=== PATIENT | female | born 1985 | race Caucasian/White ===

== ENCOUNTER 2018-07-23 17:54 | Emergency (ER) | payer MEDICAID, OTHER ==
[~2018-07-23] VITALS: Ht 180.3 cm; Wt 131.0 kg
[~2018-07-23 17:54] MED LIST: PREN1TAB49 PO
[2018-07-23 18:15] VITALS: Ht 180.3 cm; Wt 131.0 kg
[2018-07-23] MEDS ORDERED: ACETAMINOPHEN 500 MG TAB PO STA (20:21)
[2018-07-23] MEDS ORDERED: HYDROmorphONE 0.5 MG/0.5 ML SYG IM STA (20:21)
[2018-07-23] MEDS ORDERED: ONDANSETRON (ODT) 4 MG TAB ODT STA (20:21)
[2018-07-23] MEDS ORDERED: CYCL10TA7 PO (21:59)
[2018-07-23] MEDS ORDERED: HYDR-4011 PO (21:59)
--- NOTE | 2018-07-23 22:02 | ERD ---
ER Documentation Chief Complaint Chief Complaint Lower back pain after "bending over" X 1 day, no trauma HPI 32-year-old female presents with low back pain for last day. Started after bend ing over. Pain is described as 10 out of 10, sharp, without radiation. Pain is worse with movement and decreased with rest. ROS All systems reviewed and are negative except as per history of present illness. Medications Home Meds Active Scripts Cyclobenzaprine Hcl* (Cyclobenzaprine Hcl*) 10 Mg Tablet, 10 MG PO TID, #20 TAB Prov:JUVENTINO BRYANT MD 07/23/18 Hydrocodone/Acetaminophen ([place] 5-325 Tablet) 1 Each Tablet, 1 TAB PO Q6H PRN for PAIN, #14 TAB Prov:JUVENTINO BRYANT MD 07/23/18 Reported Medications Vits W-Ca,Fe,Fa(<1MG) () 1 Tab Tablet, 1 TAB PO DAILY 03/20/12 Allergies Allergies: Coded Allergies: aspirin (Verified Allergy, Unknown, 07/23/18) ibuprofen (Verified Allergy, Unknown, 07/23/18) PMhx/Soc Medical and Surgical Hx: pt denies Medical Hx, pt denies Surgical Hx Hx Neurological Disorder: Yes (sciatica) Hx Respiratory Disorders: Yes (asthma) Hx Alcohol Use: Yes (socially) Hx Tobacco Use: No Smoking Status: Never smoker FmHx Family History: No diabetes, No coronary disease, No other Physical Exam Vitals Vital Signs Date Temp Pulse Resp B/P (MAP) Pulse Ox O2 O2 Flow FiO2 Time Delivery Rate 07/23/18 99.3 80 18 139/83 99 18:15 (101) Physical Exam Const: No acute distress Head: Atraumatic Eyes: Normal Conjunctiva ENT: Normal External Ears, Nose and Mouth. Neck: Full range of motion. No meningismus. Resp: Clear to auscultation bilaterally Cardio: Regular rate and rhythm, no murmurs Abd: Soft, non tender, non distended. Normal bowel sounds Skin: No petechiae or rashes Back: No midline or flank tenderness or tenderness diffusely L4-5 area. No midline tenderness or deformities. Negative straight leg raise. Ext: No cyanosis, or edema Neur: Awake and alert Psych: Normal Mood and Affect Results 24 hrs Laboratory Tests Test 07/23/18 20:43 POC Beta HCG, Qualitative NEGATIVE Current Medications Medications Dose Sig/Seamus Start Time Status Last (Trade) Ordered Route PRN Stop Time Admin Dose Reason Admin 1 mg ONCE STAT 07/23/18 DC 07/23/18 Hydromorphone IM 20:21 21:33 HCl 07/23/18 20:23 (Dilaudid) Ondansetron 8 mg ONCE STAT 07/23/18 DC 07/23/18 HCl (Zofran ODT 20:21 21:32 Odt) 07/23/18 20:23 1,000 mg ONCE STAT 07/23/18 DC 07/23/18 Acetaminophen PO 20:21 21:32 (Tylenol 07/23/18 20:23 Tab) Procedures/MDM Patient describes an allergy which she developed ibuprofen causing shortness of breath. Patient was given Dilaudid 1 mg IM for acute pain. Is also given Zofran. hCG negative. PROCEDURE: XR Lumbar Spine. CLINICAL INDICATION: back pain TECHNIQUE: AP, lateral and cone-down lateral view of the lumbar spine were obtained. COMPARISON: No prior studies are available for comparison. FINDINGS: There are mild to moderate degenerative changes of the lumbar spine at L5-S1. There is disc space narrowing and associated enthesophytes. There is normal vertebral mineralization. There is mild levoscoliosis of the lumbar spine.. There is mild anterior wedge compression deformity of L1. There is no subluxation of vertebral bodies. The posterior elements are unremarkable. The soft tissues appear normal. There is an IUD in the pelvis. RPTAT: AA IMPRESSION: Mild anterior wedge compression deformity of L1, age indeterminate. Mild to moderate degenerative changes of the lumbar spine at L5-S1. Mild levoscoliosis of the lumbar spine. .Werner Smith MD, MD Date Time Electronically viewed and signed by .Werner Smith MD, on 07/23/2018 21:40 .S/ Presents with nontraumatic low back pain. She does have degenerative changes and possibly a compression fracture on x-ray although history does not suggest acute fracture there is no signs of dislocation, neurologic deficit, signs of epidural abscess, cauda equina syndrome, additional concerning signs or symptoms. Patient likely has lumbosacral strain. Will treat with a less than 5-day supply of Zurdo Shields, instructions for exercises, primary care follow-up and return precautions. The patient was stable with no new complaints during the ER course. Clinically, there is no current evidence to suggest meningitis, sepsis, acute abdomen, pneumonia, stroke, acute coronary syndrome, pulmonary embolism, aortic dissection or any other emergent condition appearing to require further evaluation or hospitalization. Patient counseled regarding my diagnostic impression and care plan. Prior to discharge all questions answered. Pt agrees with treatment plan and understands strict return precaution s. Pt is instructed to follow up with primary care provider within 24-48 hours. Precautionary instructions provided including instructions to return to the ER if not improving or for any worsening or changing symptoms or concerns. Disclaimer: Inadvertent spelling and grammatical errors are likely due to EHR/dictation software use and do not reflect on the overall quality of patient care. Also, please note that the electronic time recorded on this note does not necessarily reflect the actual time of the patient encounter. Departure Diagnosis: Primary Impression: Back pain Back pain location: low back pain Chronicity: acute Back pain laterality: bilateral Sciatica presence: without sciatica Qualified Codes: M54.5 - Low back pain Condition: Stable Patient Instructions: Back Pain (Acute Or Chronic) Referrals: NO PRIMARY,CARE PHYSICIAN (PCP) Additional Instructions: No acute abnormalities on x-ray. There are degenerative changes and possible old compression fracture but may be normal. Recommend exercises at home. Recheck for fevers, new or worsening symptoms. Okay to take Tylenol 500 mg 3 times a day as well. JUVENTINO BRYANT MD July 23, 2018 22:02
[2018-07-23 22:28] VITALS: BP 136/79; PULSE 73; RESP 18
== END 2018-07-23 22:29 | disposition home or self-care (01) ==
LOC: FTE 17:54
DX: M54.5 Low back pain (principal); J45.909 Unspecified asthma, uncomplicated
CPT/HCPCS: 72100; 81025; 96372; J1170; Z7502; Z7610